=== PATIENT | male | born 1950 | race American Indian/Alaskan Native ===

== ENCOUNTER 2017-05-15 10:03 | Emergency (ER) | payer MEDICARE, OTHER ==
[2017-05-15] MEDS ORDERED: Lidocaine 2% Jelly 10 ML Urojet MUCMEM ONE (11:39)
--- NOTE | 2017-05-15 11:43 | EDM.PDOC ---
ED HPI GENERAL MEDICAL PROBLEM - General Chief Complaint: General Stated Complaint: RE-INSERT FEEDING TUBE Time Seen by Provider: 05/15/17 11:15 Source of Information: Reports: Patient, Family (spouse) History Limitations: Reports: No Limitations - History of Present Illness INITIAL COMMENTS - FREE TEXT/NARRATIVE: 66-year-old male [place] fellow presents to the ED as he accidentally pulled out his G-tube last evening. This occurred while taken off his T-shirt it somehow hooked on the G-tube and pulled it out. Receives Jevity on a daily basis for nutritional status due to severe dysphagia and history of aspiration pneumonitis. It's unclear at this time what the cause of his swallowing problems are. Patient has primary hypertension is on 2 medications for hypertension which he takes daily. G-tube was placed partially 2 years ago at [facility] in [facility] by [facility] surgeons. Patient has no recollection of what he and his G-tube. 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 Takes all his medications through his G-tube.) - Related Data Allergies Allergy/AdvReac Type Severity Reaction Status Date / Time No Known Allergies Allergy Verified 05/15/17 10:15 Home Meds: Home Meds Lisinopril 20 mg PO DAILY 05/28/14 [History] Nitroglycerin [Nitrostat] 1 tab PO ASDIRECTED PRN 05/28/14 [History] Folic Acid 1 mg PO DAILY 05/15/17 [History] Magnesium 400 mg PO DAILY 05/15/17 [History] Metoprolol Tartrate 50 mg PO BID 05/15/17 [History] Past Medical History HEENT History: Reports: Impaired Vision, Other (See Below) Other HEENT History: "cannot swallow- so patient has a G-tube" Cardiovascular History: Reports: Hypertension Gastrointestinal History: Reports: None Neurological History: Reports: Other (See Below) Other Neuro History: Nerve problems in legs- walks with crutches Psychiatric History: Reports: Addiction Dermatologic History: Reports: None - Past Surgical History GI Surgical History: Reports: Other (See Below) Other GI Surgeries/Procedures: G-tube Dermatological Surgical History: Reports: Other (See Below) Social & Family History - Family History Family Medical History: Noncontributory - Tobacco Use Smoking Status *Q: Former Smoker Years of Tobacco use: 45 Packs/Tins Daily: 0.5 Used Tobacco, but Quit: Yes Month Tobacco Last Used: 2015 - Alcohol Use Days Per Week of Alcohol Use: 7 Number of Drinks Per Day: 3 Total Drinks Per Week: 21 - Recreational Drug Use Recreational Drug Use: No - Living Situation & Occupation Living situation: Reports: with Spouse Occupation: Disabled ED ROS GENERAL - Review of Systems Review Of Systems: See Below Constitutional: Reports: No Symptoms HEENT: Reports: Other (History of trouble swallowing and choking easily.) Respiratory: Reports: Other (History of aspiration pneumonia.) Cardiovascular: Reports: Blood Pressure Problem, Dyspnea on Exertion (Chronic hypertension problem controlled with medication. Known mild COPD.). Denies: Chest Pain Endocrine: Reports: Fatigue GI/Abdominal: Reports: No Symptoms, Diarrhea, Other ( due to use of Jevity.) : Reports: Frequency, Other ( usually 3.) Musculoskeletal: Reports: Back Pain Skin: Reports: No Symptoms Neurological: Reports: Other (Difficulties swallowing. Exact etiology has not been clarified.) Psychiatric: Reports: No Symptoms Hematologic/Lymphatic: Reports: No Symptoms Immunologic: Reports: No Symptoms ED EXAM, GENERAL - Physical Exam Exam: See Below Exam Limited By: No Limitations General Appearance: Alert, WD/WN, No Apparent Distress, Thin, Other Eye Exam: Bilateral Eye: Normal Inspection Head: Atraumatic, Normocephalic Neck: Normal Inspection, Supple, Non-Tender, Full Range of Motion. No: Lymphadenopathy (L), Lymphadenopathy (R) Respiratory/Chest: No Respiratory Distress, Lungs Clear, Normal Breath Sounds, Chest Non-Tender Cardiovascular: Regular Rate, Rhythm, No Edema, No Gallop, No Murmur, No Rub Peripheral Pulses: 1+: Posterior Tibial (L), Posterior Tibial (R), Dorsalis Pedis (L), Dorsalis Pedis (R) GI/Abdominal: Other (Scaphoid abdomen. Gastrostomy ostomy left upper quadrant) Back Exam: Normal Inspection, Full Range of Motion Extremities: Normal Inspection, Normal Range of Motion, Non-Tender, No Pedal Edema Neurological: Alert, Oriented, CN II-XII Intact, Normal Cognition Psychiatric: Normal Affect, Normal Mood, Anxious (Mildly anxious. States it usually hurts when they put the G-tube in.) Skin Exam: Warm, Dry, Intact, Normal Color Course - Vital Signs Last Recorded V/S: Last Vital Signs Temp 36.4 C 05/15/17 10:11 Pulse 84 05/15/17 12:50 Resp 18 05/15/17 12:32 BP 167/105 H 05/15/17 12:50 Pulse Ox 99 05/15/17 12:32 - Orders/Labs/Meds Meds: Medications Discontinued Medications Generic Name Dose Route Start Last Admin Trade Name Freq PRN Reason Stop Dose Admin Lidocaine HCl 10 ml 05/15/17 11:39 05/15/17 11:44 Xylocaine 2% Jelly MUCMEM 05/15/17 11:40 10 ml ONETIME ONE Administration Lisinopril 20 mg 05/16/17 12:33 Prinivil GTUBE 05/16/17 12:34 ONETIME ONE Metoprolol Tartrate 50 mg 05/15/17 12:34 05/15/17 12:50 Lopressor GTUBE 05/15/17 12:35 50 mg ONETIME ONE Administration - Radiology Interpretation Free Text/Narrative:: 66-year-old male from [place] presents to the ED for reinsertion of G-tube. Patient actually pulled out his G-tube when he took off his T-shirt last night before bed. We have searched high and low for a similar G-tube but aren't able to find one. I will therefore place a 12 Burmese Moya catheter into the ostomy with a 5 mL balloon. We will follow down to mid to go to clinic and arrange for surgical consult to have his G-tube replaced in the next few days. - Re-Assessments/Exams Free Text/Narrative Re-Assessment/Exam: 05/15/17 12:15: We were unable to find a G-tube. Therefore a 12 Burmese Moya catheter was placed into the ostomy with no problems encountered. Of note I had placed Urojet 2% lidocaine in his ostomy wound prior to insertion of the G- tube. It easily irrigated 50 mils of tap water. He will now be given his metoprolol 50 mg by G-tube as well as lisinopril 20 mg by G-tube crushed as he missed his morning meds. Nurses are making arrangements for him to be seen by surgery at [facility] with a view to replacement of G-tube. Departure - Departure Time of Disposition: 12:39 Disposition: Home, Self-Care 01 Condition: Fair Clinical Impression: History of gastrostomy tube placement - Discharge Information Instructions: Gastrostomy Tube Replacement Referrals: PCP,Not In Area [Primary Care Provider] - Forms: ED Department Discharge Additional Instructions: Evaluation in the emergency room today in regards to G-tube that got accidentally pulled out from urostomy left upper quadrant last night when you' re taking Dr. Jordan. We were unable to locate a satisfactory size to G-tube in our department or its [facility]. Therefore a 12 Burmese Moya catheter was placed with a 5 mL balloon on it into the ostomy without any major problems. It easily irrigates tapwater. It is safe now to continue usual Jevity feedings and all medications crushed through G-tube. Will be required with a surgeon at [facility] in [place] through the [facility] system to have gastrostomy tube replaced. Please take along the gastrostomy tube that fell out last night so that they know what tube to look for. In the meantime the Moya catheter will suffice for nutrition until the G-tube is replaced
[2017-05-15 12:33] VITALS: BP 167/105
[2017-05-15] MEDS ORDERED: Metoprolol Tartrate 50 MG Tab GTUBE ONE (12:34)
[2017-05-16] MEDS ORDERED: Lisinopril 20 MG Tab GTUBE ONE (12:33)
== END 2017-05-15 12:57 | disposition home or self-care (01) ==
LOC: JD.ED 10:03
DX: Z46.89 Encounter for fitting and adjustment of other specified devices (principal); I10 Essential (primary) hypertension; Z79.899 Other long term (current) drug therapy; Z87.891 Personal history of nicotine dependence
CPT/HCPCS: 43760; 99283; A9270

== ENCOUNTER 2018-08-06 11:15 | Emergency (ER) | payer MEDICARE, OTHER ==
[2018-08-06 11:21] VITALS: BP 141/103
[2018-08-06] MEDS ORDERED: Sodium Chloride 0.9% 10 ML Syringe FLUSH PRN (11:52)
[2018-08-06] MEDS ORDERED: Iopamidol 755 Mg/ML 200 ML Bottle IV ONE (12:24)
[2018-08-06] MEDS ORDERED: Sodium Chloride 0.9% 10 ML Syringe FLUSH ONE (12:24)
--- NOTE | 2018-08-06 14:08 | EDM.PDOC ---
ED HPI GENERAL MEDICAL PROBLEM - General Chief Complaint: Gastrointestinal Problem Stated Complaint: CAME FROM SURGERY FOR EVAL Time Seen by Provider: 08/06/18 11:34 Source of Information: Reports: Patient, Provider History Limitations: Reports: No Limitations - History of Present Illness INITIAL COMMENTS - FREE TEXT/NARRATIVE: The patient returns from surgery. He was seen here last night for a FB in his esophagus. Dr Guillen came to see the patient and took him to surgery for EGD. There was no FB seen in his esophagus. After the procedure he woke up and had to be suctioned from his mouth a few times and he is having trouble swallowing his secretions. He also has a horse voice. He is also coughing up some phlegm. He says he feels full in his chest. He has no shortness of breath. He has no abdominal pain, nausea or vomiting. He has a PEG tube from a prior stroke with trouble swallowing. He had no numbness or weakness. He says this can happen sometimes. Dr Guillen wanted him evaluated again to rule out a stroke. He has no fever or chills. Onset: Gradual Duration: Minutes: Severity: Moderate Improves with: Reports: None Worsens with: Reports: None Associated Symptoms: Reports: Chest Pain (Fullnees in his chest), Cough. Denies : Fever/Chills, Headaches, Nausea/Vomiting, Shortness of Breath - Related Data Allergies Allergy/AdvReac Type Severity Reaction Status Date / Time No Known Allergies Allergy Verified 08/06/18 11:21 Home Meds: Home Meds Lisinopril 40 mg PO DAILY 05/28/14 [History] Folic Acid 1 mg PO DAILY 05/15/17 [History] Metoprolol Tartrate 50 mg PO DAILY 05/15/17 [History] amLODIPine [Norvasc] 5 mg PO DAILY 11/21/17 [History] oxyCODONE HCl/Acetaminophen [Percocet 5-325 mg Tablet] 1 - 2 each PO Q4H PRN # 20 tablet 11/21/17 [Rx] Past Medical History HEENT History: Reports: Impaired Vision, Other (See Below) Other HEENT History: wears corrective lenses Cardiovascular History: Reports: Angina, CAD, Hypertension, [place] Gastrointestinal History: Reports: None Neurological History: Reports: CVA, Other (See Below) Other Neuro History: Nerve problems in legs- walks with crutches Psychiatric History: Reports: Addiction Dermatologic History: Reports: None - Past Surgical History GI Surgical History: Reports: Other (See Below) Other GI Surgeries/Procedures: G-tube Dermatological Surgical History: Reports: Other (See Below) Social & Family History - Family History Family Medical History: Noncontributory - Tobacco Use Smoking Status *Q: Current Status Unknown - Caffeine Use Caffeine Use: Reports: Coffee - Living Situation & Occupation Living situation: Reports: with Spouse Occupation: Disabled ED ROS GENERAL - Review of Systems Review Of Systems: See Below Constitutional: Reports: No Symptoms HEENT: Reports: No Symptoms Respiratory: Reports: Cough Cardiovascular: Reports: Chest Pain (Fullness) Endocrine: Reports: No Symptoms GI/Abdominal: Reports: No Symptoms ED EXAM, GI/ABD - Physical Exam Exam: See Below Exam Limited By: No Limitations General Appearance: Alert, No Apparent Distress Ears: Normal External Exam Nose: Normal Inspection Throat/Mouth: Normal Inspection Head: Atraumatic, Normocephalic Neck: Normal Inspection Respiratory/Chest: No Respiratory Distress, Lungs Clear, Normal Breath Sounds Cardiovascular: Regular Rate, Rhythm, No Edema, No Murmur GI/Abdominal Exam: Soft, Non-Tender, No Organomegaly, No Mass, Other (PEG tube in place) Back Exam: Normal Inspection Extremities: Normal Inspection Neurological: Alert, Oriented, No Motor/Sensory Deficits Course - Vital Signs Last Recorded V/S: Last Vital Signs Temp 99.0 F 08/06/18 11:18 Pulse 95 08/06/18 11:18 Resp 16 08/06/18 11:18 BP 141/103 H 08/06/18 11:18 Pulse Ox 9 L 08/06/18 11:18 - Orders/Labs/Meds Orders: Active Orders 24 hr Category Date Time Status Cardiac Monitoring [RC] . DIRECTED Care 08/06/18 11:52 Active Peripheral IV Care [RC] . DIRECTED Care 08/06/18 11:53 Active Chest w Cont [CT] Stat Exams 08/06/18 11:53 Taken Head wo Cont [CT] Stat Exams 08/06/18 11:54 Taken Sodium Chloride 0.9% [Saline Flush] Med 08/06/18 11:52 Active 10 ml FLUSH ASDIRECTED PRN Peripheral IV Insertion Adult [OM.PC] Stat Oth 08/06/18 11:52 Ordered Medication Orders Sodium Chloride (Saline Flush) 10 ml FLUSH ASDIRECTED PRN PRN Reason: Keep Vein Open Last Admin: 08/06/18 12:37 Dose: 10 ml Labs: Laboratory Tests 08/06/18 08/06/18 Range/Units 13:37 13:37 WBC 9.09 H (4.23-9.07) K/mm3 RBC 4.11 L (4.63-6.08) M/mm3 Hgb 13.7 (13.7-17.5) gm/L Hct 41.2 (40.1-51.0) % MCV 100.2 H (79.0-92.2) fl MCH 33.3 H (25.7-32.2) pg MCHC 33.3 (32.2-35.5) g/dl RDW Std Deviation 46.1 H (35.1-43.9) fL Plt Count 189 (163-337) K/mm3 MPV 11.2 (9.4-12.3) fl Neut % (Auto) 78.8 H (34.0-67.9) % Lymph % (Auto) 10.8 L (21.8-53.1) % [place] % (Auto) 9.8 (5.3-12.2) % Eos % (Auto) 0.2 L (0.8-7.0) Baso % (Auto) 0.2 (0.1-1.2) % Neut # (Auto) 7.16 H (1.78-5.38) K/mm3 Lymph # (Auto) 0.98 L (1.32-3.57) K/mm3 [place] # (Auto) 0.89 H (0.30-0.82) K/mm3 Eos # (Auto) 0.02 L (0.04-0.54) K/mm3 Baso # (Auto) 0.02 (0.01-0.08) K/mm3 Sodium 137 (136-145) mEq/L Potassium 3.5 (3.5-5.1) mEq/L Chloride 103 (98-107) mEq/L Carbon Dioxide 25 (21-32) mEq/L Anion Gap 12.5 (5-15) BUN 8 (7-18) mg/dL Creatinine 0.7 (0.7-1.3) mg/dL Est Cr Clr Drug Dosing 93.96 mL/min Estimated GFR (MDRD) > 60 (>60) mL/min BUN/Creatinine Ratio 11.4 L (14-18) Glucose 97 (80-115) mg/dL Calcium 8.4 L (8.5-10.1) mg/dL Total Bilirubin 1.0 (0.2-1.0) mg/dL AST 67 H (15-37) U/L ALT 58 (16-63) U/L Alkaline Phosphatase 75 (46-116) U/L Troponin I < 0.017 (0.00-0.056) ng/mL C-Reactive Protein 7.1 H* (<1.0) mg/dL Total Protein 6.6 (6.4-8.2) g/dl Albumin 3.0 L (3.4-5.0) g/dl Globulin 3.6 gm/dL Albumin/Globulin Ratio 0.8 L (1-2) Meds: Medications Generic Name Dose Route Start Last Admin Trade Name Freq PRN Reason Stop Dose Admin Sodium Chloride 10 ml 08/06/18 11:52 08/06/18 12:37 Saline Flush FLUSH 10 ml ASDIRECTED PRN Administration Keep Vein Open Discontinued Medications Generic Name Dose Route Start Last Admin Trade Name Freq PRN Reason Stop Dose Admin Iopamidol 80 ml 08/06/18 12:24 08/06/18 12:37 Isovue-370 (76%) IV 08/06/18 12:25 100 ml ONETIME ONE Administration Sodium Chloride 10 ml 08/06/18 12:24 08/06/18 13:05 Saline Flush FLUSH 08/06/18 12:25 10 ml ONETIME ONE Administration - Re-Assessments/Exams Free Text/Narrative Re-Assessment/Exam: 08/06/18 14:12 I ordered an IV saline lock, CT of his head and chest and labs. 08/06/18 14:13 His WBC was slightly elevated at 9.09. The CT of his head shows no CT evidence for acute intracranial abnormality. The CT of his chest shows no evidence for acute pulmonary disease. 08/06/18 14:14 His CMP looks good. His CRP is elevated at 7.1. His troponin is negative. I will discharge him home. 08/06/18 14:18 He is doing better. Departure - Departure Time of Disposition: 14:20 Disposition: Home, Self-Care 01 Condition: Good Clinical Impression: History of gastrostomy tube placement, Congestion of throat Impacted esophageal foreign body Qualifiers: Encounter type: initial encounter Qualified Code(s): T18.108A - Unspecified foreign body in esophagus causing other injury, initial encounter - Discharge Information *PRESCRIPTION DRUG MONITORING PROGRAM REVIEWED*: Not Applicable *COPY OF PRESCRIPTION DRUG MONITORING REPORT IN PATIENT ABDULKADIR: Not Applicable Referrals: PCP,None [Primary Care Provider] - Forms: ED Department Discharge Additional Instructions: Take your medication as prescribed. Follow up with your doctor in 1 week. Please return if you are worse. - My Orders Last 24 Hours: My Active Orders 08/06/18 11:52 Cardiac Monitoring [RC] . DIRECTED Sodium Chloride 0.9% [Saline Flush] 10 ml FLUSH ASDIRECTED PRN Peripheral IV Insertion Adult [OM.PC] Stat 08/06/18 11:53 Peripheral IV Care [RC] . DIRECTED Chest w Cont [CT] Stat 08/06/18 11:54 Head wo Cont [CT] Stat - Assessment/Plan Last 24 Hours: My Active Orders 08/06/18 11:52 Cardiac Monitoring [RC] . DIRECTED Sodium Chloride 0.9% [Saline Flush] 10 ml FLUSH ASDIRECTED PRN Peripheral IV Insertion Adult [OM.PC] Stat 08/06/18 11:53 Peripheral IV Care [RC] . DIRECTED Chest w Cont [CT] Stat 08/06/18 11:54 Head wo Cont [CT] Stat
--- NOTE | 2018-08-08 10:56 | CT ---
CT chest Technique: Multiple axial sections through the chest were obtained. Intravenous contrast was utilized. Comparison: Prior chest x-ray performed earlier on the same day (2:13 AM), no previous chest x-ray is available. Findings: Mediastinum and hilar region show no adenopathy or mass. Aorta shows atherosclerotic calcification without aneurysm. Mild coronary artery calcification is seen. No pericardial thickening is seen. Fatty infiltration is noted within the liver. Gastrostomy tube is seen. No axillary adenopathy is seen. Very minimal bibasilar atelectasis is seen. Slight extrapleural fat is seen within both posterior lung bases which is incidental. Bone window settings show no slight scoliosis and minimal degenerative change within the spine. No acute rib fracture is appreciated. Incidental degenerative change is seen within both shoulders. Impression: 1. Incidental findings as noted above. Nothing acute is appreciated on CT study of the chest. Diagnostic code #2 I agree with preliminary report issued by [facility] ([facility] report finalized on 08/06/18, 2:02 PM Central Time.
--- NOTE | 2018-08-08 10:56 | CT ---
Head CT Technique: Multiple axial sections through the brain were obtained. Intravenous contrast was not utilized. Comparison: Prior head CT study of 09/04/15. Findings: Ventricles along with basal cisterns and sulci over the convexities are moderately prominent. Diminished density noted within the subcortical and periventricular white matter compatible with small vessel ischemic demyelination change. No other abnormal parenchymal densities are seen. No evidence of intracranial hemorrhage. No midline shift or mass effect is seen. Atherosclerotic calcification is seen within the vertebral vessels. Bone window settings were reviewed which show an old fracture within the medial right orbit. No acute calvarial abnormality is seen. Impression: 1. Findings as noted above. Nothing acute is appreciated. Diagnostic code #2 I agree with preliminary report issued by [facility] ([facility] report finalized on 08/06/18, 1:58 PM Central Time.
== END 2018-08-06 14:35 | disposition home or self-care (01) ==
LOC: JD.ED 11:15
DX: T18.108A Unspecified foreign body in esophagus causing other injury, initial encounter (principal); I10 Essential (primary) hypertension; I25.2 Old myocardial infarction; Z79.899 Other long term (current) drug therapy; X58.XXXA Exposure to other specified factors, initial encounter
CPT/HCPCS: 36415; 70450; 71260; 80053; 84484; 85025; 86140; 99284; Q9967

== ENCOUNTER → 2018-08-06 | Day surgery (SDC) | payer MEDICARE, OTHER ==
[~2018-08-06] MED LIST: Glucagon,Human Recombinant 1 MG Vial IVPUSH ONE; HYDROmorphone 1 MG/ML Syringe IVPUSH ONE; LORazepam 2 MG/ML SDV IVPUSH ONE; Lidocaine 1% 4 ML ONE; Metoclopramide 10 MG/2 ML SDV IVPUSH ONE; Metoprolol Tartrate 5 MG/5 ML SDV ONE; Midazolam 1 MG/ML 2 ML SDV ONE; Propofol 200 MG/20 ML SDV ONE; Sodium Chloride 0.9% 1,000 ML IV SCH; Succinylcholine/Normal Saline 100 MG/5 ML Syringe ONE; fentaNYL 100 MCG/2 ML SDV ONE
--- NOTE | 2018-08-06 01:49 | EDM.PDOC ---
ED HPI GENERAL MEDICAL PROBLEM - General Chief Complaint: Gastrointestinal Problem Stated Complaint: [facility] Time Seen by Provider: 08/06/18 01:42 Source of Information: Reports: Patient History Limitations: Reports: No Limitations - History of Present Illness INITIAL COMMENTS - FREE TEXT/NARRATIVE: 67-year-old male from [place] presents to the ED per their ambulance. He states he's been trying to wean himself off his G-tube which she's been using for feeding for about for 5 years after having a stroke. Last evening he tried to take some topical chips and eat them. He feels that they got stuck at the lower portion of his esophagus and since then he's been unable to swallow or drink anything and is regurgitating up his saliva. He has lower retrosternal chest pain discomfort as well. No blood is coming up. She usually takes all of his medications crushed through his G-tube. Paramedics started an IV and gave him some Zofran 4 mg IV en route to [place]. Onset: Sudden Onset Date: 08/05/18 Onset Time: 19:30 Duration: Hour(s): Location: Reports: Chest (Lower retrosternal chest pressure discomfort with recurrent regurgitation compatible with foreign body obstruction of the distal esophagus) Quality: Reports: Pressure, Other (Intermittent colicky type pain) Severity: Moderate Improves with: Reports: None Worsens with: Reports: Other Context: Reports: Other (Is trying to wean himself off his G-tube and took oral feedings that did not go down his esophagus last evening.). Denies: Activity, Exercise (Worse when he tries to swallow even his saliva is coming back up.), Lifting, Sick Contact, Trauma Associated Symptoms: Reports: Cough. 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 (see below) (Machine Spring Former came Zofran 4 mg IV.) Chest Pain Score (Numeric/FACES): 5 - Related Data Allergies Allergy/AdvReac Type Severity Reaction Status Date / Time No Known Allergies Allergy Verified 08/06/18 11:21 Home Meds: Home Meds Lisinopril 40 mg PO DAILY 05/28/14 [History] Folic Acid 1 mg PO DAILY 05/15/17 [History] Metoprolol Tartrate 50 mg PO DAILY 05/15/17 [History] amLODIPine [Norvasc] 5 mg PO DAILY 11/21/17 [History] oxyCODONE HCl/Acetaminophen [Percocet 5-325 mg Tablet] 1 - 2 each PO Q4H PRN # 20 tablet 11/21/17 [Rx] Past Medical History HEENT History: Reports: Impaired Vision, Other (See Below) Other HEENT History: wears corrective lenses Cardiovascular History: Reports: Angina, CAD, Hypertension, [place] Gastrointestinal History: Reports: None Neurological History: Reports: CVA (Ana Cristina a cerebrovascular accident about 4- 5 years ago with associated dysphagia and esophageal motility problems. He thus required feeding through a G-tube and is been doing this for the last 4 years. He was recently instructed to try to take fluids and some food orally and he's been trying to do this for the last 2-3 weeks.), Other (See Below) Other Neuro History: Nerve problems in legs- walks with crutches Psychiatric History: Reports: Addiction Dermatologic History: Reports: None - Past Surgical History GI Surgical History: Reports: Other (See Below) Other GI Surgeries/Procedures: G-tube Dermatological Surgical History: Reports: Other (See Below) Social & Family History - Family History Family Medical History: Noncontributory - Tobacco Use Smoking Status *Q: Former Smoker Used Tobacco, but Quit: Yes Month/Year Tobacco Last Used: 3-4 years ago - Caffeine Use Caffeine Use: Reports: Coffee - Living Situation & Occupation Living situation: Reports: with Spouse Occupation: Disabled ED ROS GENERAL - Review of Systems Review Of Systems: See Below Constitutional: Reports: Decreased Appetite. Denies: Fever, Chills, Malaise, Weakness, Fatigue, Weight Loss HEENT: Reports: Glasses Respiratory: Reports: Shortness of Breath, Cough (Looking cough with regurgitation of his saliva). Denies: Wheezing, Pleuritic Chest Pain Cardiovascular: Reports: Chest Pain (Extra sternal chest pain rated the lower portion of the sternum.), Blood Pressure Problem (Is on 2 different), Dyspnea on Exertion. Denies: Claudication ( blood pressure medications), Edema, Lightheadedness, Orthopnea Endocrine: Reports: Fatigue GI/Abdominal: Reports: Difficulty Swallowing, Other (Primarily receives most of his nutrition through G-tube left upper quadrant of the abdomen.). Denies: Abdominal Pain, Anorexia, Black Stool, Bloody Stool, Constipation, Diarrhea, Decreased Appetite, Distension, Flatus, Hematemesis, Hematochezia : Reports: Frequency, Other (Nocturia usually 2 or 3) Musculoskeletal: Reports: Other (Walks with aid of a walker due to weakness in his lower extremities) Skin: Reports: No Symptoms Neurological: Reports: Difficulty Walking, Gait Disturbance. Denies: Confusion , Dizziness, Change in Speech Psychiatric: Reports: No Symptoms Hematologic/Lymphatic: Reports: No Symptoms Immunologic: Reports: No Symptoms ED EXAM, GI/ABD - Physical Exam Exam: See Below Exam Limited By: No Limitations General Appearance: Alert, WD/WN, Moderate Distress (Continues to bring up clear saliva which is slightly thickened but clear in color. No blood.), Other ( His vital signs show his temperature is 37.5. His pulse was 120 and a noticed on the monitor at times it's sinus up to 130/m. Spiked rate is 17 with sats of 96% on room air) Eyes: Bilateral: Normal Appearance Throat/Mouth: Normal Inspection, Normal Lips, Normal Oropharynx Head: Atraumatic, Normocephalic Neck: Normal Inspection, Supple, Non-Tender, Full Range of Motion. No: Lymphadenopathy (L), Lymphadenopathy (R) Respiratory/Chest: No Respiratory Distress, Lungs Clear, Normal Breath Sounds, No Accessory Muscle Use Cardiovascular: Regular Rate, Rhythm, No Edema (Cardiac 125/m sinus on the monitor.), No Gallop, No Murmur, No Rub, Tachycardia. No: Normal Peripheral Pulses GI/Abdominal Exam: Normal Bowel Sounds, Soft, Non-Tender, No Organomegaly, No Abnormal Bruit, No Mass, Pelvis Stable, Other (G-tube present left upper quadrant of the abdomen . Mild erythema at the base of the stoma) Back Exam: Normal Inspection, Full Range of Motion. No: CVA Tenderness (L), CVA Tenderness (R) Extremities: Other (Has some atrophy of his lower extremities.) Neurological: Alert, Oriented, CN II-XII Intact, Normal Cognition, Other (Walks slowly with aid of a walker.). No: Normal Gait Psychiatric: Anxious Skin Exam: Warm, Dry, Intact, Normal Color, No Rash EKG INTERPRETATION EKG Date: 08/06/18 Time: 01:52 Rhythm: Other (Sinus tachycardia 1 21/m) Rate (Beats/Min): 121 Darden: LAD-Left Darden Deviation (-79 with left anterior fascicular block pattern) P-Wave: Present QRS: Other (Q waves V1 to V3 compatible with old anteroseptal myocardial infarction. There is a left ventricular hypertrophy pattern. There is a near Q- wave in lead 2 and aVF and a Q-wave in lead 3 suggesting an old inferior wall myocardial infarction.) ST-T: Other (T-wave inversion aVL nonspecific finding) QT: Prolonged (QTC is mildly prolonged.) EKG Interpretation Comments: Abnormal ECG Course - Vital Signs Last Recorded V/S: Last Vital Signs Temp 37.2 C 08/06/18 10:36 Pulse 95 08/06/18 10:36 Resp 16 08/06/18 10:36 BP 138/96 H 08/06/18 10:36 Pulse Ox 95 08/06/18 10:36 - Orders/Labs/Meds Orders: Medication Orders Sodium Chloride (Normal Saline) 1,000 mls @ 100 mls/hr IV ASDIRECTED COUNT INCLUDES THE [facility] Last Admin: 08/06/18 02:04 Dose: 100 mls/hr Labs: Laboratory Tests 08/06/18 08/06/18 08/06/18 Range/Units 02:04 02:04 02:04 WBC 10.63 H (4.23-9.07) K/mm3 RBC 4.41 L (4.63-6.08) M/mm3 Hgb 14.6 (13.7-17.5) gm/L Hct 43.4 (40.1-51.0) % MCV 98.4 H (79.0-92.2) fl MCH 33.1 H (25.7-32.2) pg MCHC 33.6 (32.2-35.5) g/dl RDW Std Deviation 44.7 H (35.1-43.9) fL Plt Count 202 (163-337) K/mm3 MPV 11.1 (9.4-12.3) fl Neutrophils % (Manual) 86 H (40-60) % Band Neutrophils % 2 (0-10) % Lymphocytes % (Manual) 5 L (20-40) % Atypical Lymphs % 0 % Monocytes % (Manual) 7 (2-10) % Eosinophils % (Manual) 0 L (0.8-7.0) % Basophils % (Manual) 0 L (0.2-1.2) Platelet Estimate Adequate Plt Morphology Comment Normal Macrocytosis 1+ slight RBC Morph Comment Not Reportable Sodium 135 L (136-145) mEq/L Potassium 3.5 (3.5-5.1) mEq/L Chloride 100 (98-107) mEq/L Carbon Dioxide 20 L (21-32) mEq/L Anion Gap 18.5 H (5-15) BUN 8 (7-18) mg/dL Creatinine 0.8 (0.7-1.3) mg/dL Est Cr Clr Drug Dosing 85.50 mL/min Estimated GFR (MDRD) > 60 (>60) mL/min BUN/Creatinine Ratio 10.0 L (14-18) Glucose 104 (80-115) mg/dL Calcium 8.9 (8.5-10.1) mg/dL Magnesium 2.0 (1.8-2.4) mg/dl Total Bilirubin 0.7 (0.2-1.0) mg/dL AST 117 H (15-37) U/L ALT 68 H (16-63) U/L Alkaline Phosphatase 90 (46-116) U/L NT-Pro-B Natriuret Pep 316 H (0-125) pg/mL Total Protein 7.3 (6.4-8.2) g/dl Albumin 3.4 (3.4-5.0) g/dl Globulin 3.9 gm/dL Albumin/Globulin Ratio 0.9 L (1-2) Meds: Medications Generic Name Dose Route Start Last Admin Trade Name Freq PRN Reason Stop Dose Admin Sodium Chloride 1,000 mls @ 100 mls/hr 08/06/18 02:00 08/06/18 02:04 Normal Saline IV 100 mls/hr ASDIRECTED MARY Administration Discontinued Medications Generic Name Dose Route Start Last Admin Trade Name Freq PRN Reason Stop Dose Admin Fentanyl Confirm 08/06/18 08:51 Sublimaze Administered 08/06/18 08:52 Dose 100 mcg .ROUTE .STK-MED ONE Glucagon 1 mg 08/06/18 01:51 08/06/18 02:28 Glucagen IVPUSH 08/06/18 01:52 1 mg ONETIME ONE Administration Hydromorphone HCl 0.5 mg 08/06/18 01:50 08/06/18 02:07 Dilaudid IVPUSH 08/06/18 01:51 0.5 mg ONETIME ONE Administration Hydromorphone HCl 0.5 mg 08/06/18 02:48 08/06/18 02:56 Dilaudid IVPUSH 08/06/18 02:49 0.5 mg ONETIME ONE Administration Lidocaine HCl Confirm 08/06/18 08:51 Xylocaine-Mpf 1% Administered 08/06/18 08:52 Dose 4 mls @ as directed .ROUTE .STK-MED ONE Lorazepam 0.5 mg 08/06/18 02:49 08/06/18 02:57 Ativan IVPUSH 08/06/18 02:50 0.5 mg ONETIME ONE Administration Metoclopramide HCl 10 mg 08/06/18 01:50 08/06/18 02:07 Reglan IVPUSH 08/06/18 01:51 10 mg ONETIME ONE Administration Metoclopramide HCl 10 mg 08/06/18 02:04 08/06/18 02:07 Reglan IVPUSH 08/06/18 02:05 Not Given ONETIME ONE Metoprolol Tartrate Confirm 08/06/18 08:57 Lopressor Administered 08/06/18 08:58 Dose 5 mg .ROUTE .STK-MED ONE Midazolam HCl Confirm 08/06/18 08:51 Versed 1 Mg/Ml Administered 08/06/18 08:52 Dose 2 mg .ROUTE .STK-MED ONE Propofol Confirm 08/06/18 08:50 Diprivan 20 Ml Administered 08/06/18 08:51 Dose 200 mg .ROUTE .STK-MED ONE Succinylcholine Chloride Confirm 08/06/18 08:51 Succinylcholine In Ns Pf Administered 08/06/18 08:52 Dose 100 mg .ROUTE .STK-MED ONE - Radiology Interpretation Free Text/Narrative:: 67-year-old male presents to the ED with suspect foreign body impaction in lower aspect of his esophagus. had is had a previous CVA and trouble with esophageal motility for the last 5 years. He is primarily fed with a G-tube left upper quadrant of the abdomen. He states he was trying to wean himself off his G-tube as instructed to by his neurologist. He can usually get most fluids down but does travel quite easily. Last night he tried to eat a taco and it did not go down. He states since about 1930 hrs. last evening he's been bringing up all of his saliva and regurgitating. He has pain in his distal lower retrosternal area. Patient presents with a sinus tachycardia at 1 21/m and is obviously quite anxious and in some degree of discomfort. His ECG is suspicious for old anteroseptal myocardial infarction and old inferior wall myocardial infarction. ECG suggests significant left ventricle hypertrophy pattern. He has a chronic hypertension problem. When chest x-ray will be done to make sure there 's been no aspiration. Labs will be performed as he may well end up going to the or for EGD. Plan normal saline at 100 mils per hour. Given Dilaudid 0.5 mg IV with Reglan 10 mg IV and in 20 minutes was given glucagon 1 mg IV and see if we can get the food bolus to go through. I will give him a small sip of serum best to try and facilitate passage of food bolus after the glucagon is in. Failing this we will have to contact the surgeon to perform EGD. - Re-Assessments/Exams Free Text/Narrative Re-Assessment/Exam: 08/06/18 02:49 5 minutes after the glucagon was given he was tried on some Sruthi mist soda pop. He still is not able to swallow it however. He continues to regurgitate saliva. He seems to wince when he swallows suggesting that he may have something in the upper esophagus as well. I'm going to give him repeat Dilaudid 0.5 mg IV and Ativan 0.5 mg IV in the hopes of providing some degree of pain relief and sedation. Hopefully he will be able to sleep for a couple of hours and then I will reevaluate him. Of couple hours and then reevaluatehim. It is likely that he is going to require an EGD. Do not see that it is any emergent need I will call the surgeon around 0600 hrs. this morning. 08/06/18 03:14 chest x-ray done portably reveals some chronic inflammation or scar tissue right lower lobe which was present on x-ray done in August 2015. Cardiac silhouette is normal in size. Upper lung starr are clear with no evidence of aspiration pneumonitis. Labs are back. White count is 10.63 with 86 % neutrophils and 2% band cells. Hemoglobin is 14.6 with hematocrit of 43.4. MCV is mildly elevated at 98.4. Sodium 135 with a potassium of 3.5. Chloride 100 with bicarbonate 20. Anion gap is elevated at 18.5. BUN is 8 with creatinine of 0.8. Glucose 104 the calcium of 8.9. Magnesium is 2.0 with a bilirubin of 0.7. AST is 117 with ALT of 68. Alk phosphatase is normal at 90. BNP is minimally elevated at 316. Total protein is 7.3. Patient is therefore mildly volume depleted with an elevated anion gap. Continue IV fluids normal saline 100 mils per hour overnight. I will plan a calling the surgeon at about 0600 hrs. 08/06/18 03:55 patient falls asleep transiently. But he has occurred suction in his hand that he can suction himself with if he needs to for regurgitation of saliva. 08/06/18 06:22 discussed the case with Dr.Charles Guillen. --[facility] surgeon and he will attend Mr Bhardwaj in the ED with proposal for EGD later this am. Departure - Departure Time of Disposition: 09:20 Disposition: DC/Tfer to Critical Access 66 Condition: Fair Clinical Impression: Impacted esophageal foreign body Qualifiers: Encounter type: initial encounter Qualified Code(s): T18.108A - Unspecified foreign body in esophagus causing other injury, initial encounter - Discharge Information *PRESCRIPTION DRUG MONITORING PROGRAM REVIEWED*: Not Applicable *COPY OF PRESCRIPTION DRUG MONITORING REPORT IN PATIENT ABDULKADIR: Not Applicable
--- NOTE | 2018-08-06 06:21 | CR ---
Chest: Frontal view of the chest. Comparison: Prior chest x-ray of 09/04/15. Heart size is normal. Tortuous thoracic aorta is seen. Lungs are clear with no acute parenchymal change. Scoliosis is noted within the spine. Impression: 1. Nothing acute is seen on frontal chest x-ray. Diagnostic code #2
--- NOTE | 2018-08-06 08:11 | PCM.PREANE ---
Preanesthetic Assessment - Anesthesia/Transfusion/Family Hx Anesthesia History: Prior Anesthesia Without Reaction Family History of Anesthesia Reaction: No Transfusion History: No Prior Transfusion(s) - Review of Systems General: Weakness, Malaise Pulmonary: Shortness of Breath, Cough, Sputum Cardiovascular: Dyspnea on Exertion, Lightheadedness Gastrointestinal: Abdominal Pain, Difficulty Swallowing, Nausea, Vomiting Neurological: Gait Disturbance (walks with walker) Other: Reports: Easy Bruising - Physical Assessment NPO Status Date: 08/05/18 NPO Status Time: 19:30 Pulse: 113 O2 Sat by Pulse Oximetry: 96 Respiratory Rate: 17 Blood Pressure: 149/98 Temperature: 3.1 C Vital Signs: Last Vital Signs Temp 37.5 C 08/06/18 01:26 Pulse 120 H 08/06/18 01:26 Resp 17 08/06/18 01:26 BP 138/110 H 08/06/18 01:26 Pulse Ox 96 08/06/18 01:26 Height: 1.73 m Weight: 70.307 kg ASA Class: 3E Mental Status: Alert & Oriented x3 Airway Class: Mallampati = 2 Dentition: Reports: Broken Tooth/Teeth, Caries Thyro-Mental Finger Breadths: 2 Mouth Opening Finger Breadths: 2 ROM/Head Extension: Full Lungs: Clear to Auscultation, Normal Respiratory Effort - Lab Values: Laboratory Last Values WBC 10.63 K/mm3 (4.23-9.07) H 08/06/18 02:04 RBC 4.41 M/mm3 (4.63-6.08) L 08/06/18 02:04 Hgb 14.6 gm/L (13.7-17.5) 08/06/18 02:04 Hct 43.4 % (40.1-51.0) 08/06/18 02:04 MCV 98.4 fl (79.0-92.2) H 08/06/18 02:04 MCH 33.1 pg (25.7-32.2) H 08/06/18 02:04 MCHC 33.6 g/dl (32.2-35.5) 08/06/18 02:04 RDW Std Deviation 44.7 fL (35.1-43.9) H 08/06/18 02:04 Plt Count 202 K/mm3 (163-337) 08/06/18 02:04 MPV 11.1 fl (9.4-12.3) 08/06/18 02:04 Neutrophils % (Manual) 86 % (40-60) H 08/06/18 02:04 Band Neutrophils % 2 % (0-10) 08/06/18 02:04 Lymphocytes % (Manual) 5 % (20-40) L 08/06/18 02:04 Atypical Lymphs % 0 % 08/06/18 02:04 Monocytes % (Manual) 7 % (2-10) 08/06/18 02:04 Eosinophils % (Manual) 0 % (0.8-7.0) L 08/06/18 02:04 Basophils % (Manual) 0 (0.2-1.2) L 08/06/18 02:04 Platelet Estimate Adequate 08/06/18 02:04 Plt Morphology Comment Normal 08/06/18 02:04 Macrocytosis 1+ slight 08/06/18 02:04 RBC Morph Comment Not Reportable 08/06/18 02:04 Sodium 135 mEq/L (136-145) L 08/06/18 02:04 Potassium 3.5 mEq/L (3.5-5.1) 08/06/18 02:04 Chloride 100 mEq/L (98-107) 08/06/18 02:04 Carbon Dioxide 20 mEq/L (21-32) L 08/06/18 02:04 Anion Gap 18.5 (5-15) H 08/06/18 02:04 BUN 8 mg/dL (7-18) 08/06/18 02:04 Creatinine 0.8 mg/dL (0.7-1.3) 08/06/18 02:04 Est Cr Clr Drug Dosing 85.50 mL/min 08/06/18 02:04 Estimated GFR (MDRD) > 60 mL/min (>60) 08/06/18 02:04 BUN/Creatinine Ratio 10.0 (14-18) L 08/06/18 02:04 Glucose 104 mg/dL (80-115) 08/06/18 02:04 Calcium 8.9 mg/dL (8.5-10.1) 08/06/18 02:04 Magnesium 2.0 mg/dl (1.8-2.4) 08/06/18 02:04 Total Bilirubin 0.7 mg/dL (0.2-1.0) 08/06/18 02:04 AST 117 U/L (15-37) H 08/06/18 02:04 ALT 68 U/L (16-63) H 08/06/18 02:04 Alkaline Phosphatase 90 U/L (46-116) 08/06/18 02:04 NT-Pro-B Natriuret Pep 316 pg/mL (0-125) H 08/06/18 02:04 Total Protein 7.3 g/dl (6.4-8.2) 08/06/18 02:04 Albumin 3.4 g/dl (3.4-5.0) 08/06/18 02:04 Globulin 3.9 gm/dL 08/06/18 02:04 Albumin/Globulin Ratio 0.9 (1-2) L 08/06/18 02:04 - Imaging/EKG Impressions: EKG on chart ST with PACs - Allergies Allergies/Adverse Reactions: Allergies Allergy/AdvReac Type Severity Reaction Status Date / Time No Known Allergies Allergy Verified 08/06/18 02:35 - Blood Blood Available: No Product(s) Available: None - Anesthesia Plan Pre-Op Medication Ordered: Beta Mark Beta Mark: Metoprolol Med Last Dose Date: 08/06/18 Med Last Dose Time: 08:57 - Acknowledgements Anesthesia Type Planned: General Anesthesia Pt an Appropriate Candidate for the Planned Anesthesia: Yes Alternatives and Risks of Anesthesia Discussed w Pt/Guardian: Yes Pt/Guardian Understands and Agrees with Anesthesia Plan: Yes PreAnesthesia Questionnaire HEENT History: Reports: Impaired Vision, Other (See Below) Other HEENT History: wears corrective lenses Cardiovascular History: Reports: Angina, CAD, Hypertension, [place] Gastrointestinal History: Reports: None Neurological History: Reports: CVA (Ana Cristina a cerebrovascular accident about 4- 5 years ago with associated dysphagia and esophageal motility problems. He thus required feeding through a G-tube and is been doing this for the last 4 years. He was recently instructed to try to take fluids and some food orally and he's been trying to do this for the last 2-3 weeks.), Other (See Below) Other Neuro History: Nerve problems in legs- walks with crutches Psychiatric History: Reports: Addiction Dermatologic History: Reports: None - Past Surgical History GI Surgical History: Reports: Other (See Below) Other GI Surgeries/Procedures: G-tube Dermatological Surgical History: Reports: Other (See Below) - SUBSTANCE USE Smoking Status *Q: Former Smoker Tobacco Use Within Last Twelve Months: No - HOME MEDS Home Medications: Home Meds Lisinopril 40 mg PO DAILY 05/28/14 [History] Folic Acid 1 mg PO DAILY 05/15/17 [History] Metoprolol Tartrate 50 mg PO DAILY 05/15/17 [History] amLODIPine [Norvasc] 5 mg PO DAILY 11/21/17 [History] oxyCODONE HCl/Acetaminophen [Percocet 5-325 mg Tablet] 1 - 2 each PO Q4H PRN # 20 tablet 11/21/17 [Rx] - CURRENT (IN HOUSE) MEDS Current Meds: Current Medications Sodium Chloride (Normal Saline) 1,000 mls @ 100 mls/hr IV ASDIRECTED MARY Last Admin: 08/06/18 02:04 Dose: 100 mls/hr Discontinued Medications Glucagon (Glucagen) 1 mg IVPUSH ONETIME ONE Stop: 08/06/18 01:52 Last Admin: 08/06/18 02:28 Dose: 1 mg Hydromorphone HCl (Dilaudid) 0.5 mg IVPUSH ONETIME ONE Stop: 08/06/18 01:51 Last Admin: 08/06/18 02:07 Dose: 0.5 mg Hydromorphone HCl (Dilaudid) 0.5 mg IVPUSH ONETIME ONE Stop: 08/06/18 02:49 Last Admin: 08/06/18 02:56 Dose: 0.5 mg Lorazepam (Ativan) 0.5 mg IVPUSH ONETIME ONE Stop: 08/06/18 02:50 Last Admin: 08/06/18 02:57 Dose: 0.5 mg Metoclopramide HCl (Reglan) 10 mg IVPUSH ONETIME ONE Stop: 08/06/18 01:51 Last Admin: 08/06/18 02:07 Dose: 10 mg Metoclopramide HCl (Reglan) 10 mg IVPUSH ONETIME ONE Stop: 08/06/18 02:05 Last Admin: 08/06/18 02:07 Dose: Not Given
--- NOTE | 2018-08-06 09:41 | PCM.POSTAN ---
POST ANESTHESIA ASSESSMENT - MENTAL STATUS Mental Status: Alert, Oriented - VITAL SIGNS Pulse Rate: 87 SaO2: 95 Resp Rate: 20 Blood Pressure: 124/82 Temperature: 37.3 C - RESPIRATORY Respiratory Status: Respiratory Rate WNL, Airway Patent, O2 Saturation Stable, Supplemental Oxygen - CARDIOVASCULAR CV Status: Pulse Rate WNL, Blood Pressure Stable - GASTROINTESTINAL GI Status: No Symptoms - PAIN Pain Score: 0 - POST OP HYDRATION Hydration Status: Adequate & Stable - OBSERVATIONS Free Text/Narrative:: no anesthesia complications noted
[2018-08-06 12:37] VITALS: BP 138/96
--- NOTE | 2018-08-06 14:05 | HP ---
DATE OF ADMISSION: 08/06/2018 REASON FOR ADMISSION: Foreign body lodged in the esophagus. HISTORY OF PRESENT ILLNESS: Xavier is a 67-year-old male 5 years status post CVA. He has residual dysphagia of the esophagus and some reduced mobility. His cognition is normal. He has a G-tube in place, which he has been trying to wean over the last several months. He attempted to eat a taco last night which became lodged in the esophagus. He has had this happen around dinnertime. He turned up in the ED last night with failure to pass the food bolus. Attempts to treat him medically have failed including glucagon. The patient remains here, not able to swallow his saliva, coughing, complaining of retrosternal chest pain. He has had no prior episodes. PAST MEDICAL HISTORY: 1. Hypertension. 2. CVA. 3. Poor vision. 4. Angina. 5. Coronary artery disease. 6. Hypertension. 7. History of RI. PAST SURGICAL HISTORY: He had a gastrostomy tube placed. FAMILY HISTORY: Unremarkable. CURRENT MEDICATIONS: 1. Lisinopril 40 mg p.o. daily. 2. Folic acid 1 mg p.o. daily. 3. Metoprolol 50 mg p.o. daily. 4. Norvasc 5 mg daily. 5. Oxycodone 1 to 2 tablets every 4 hours p.r.n. SOCIAL HISTORY: Substance history: He is a former smoker. Denies illicit drugs. Denies alcohol abuse. REVIEW OF SYSTEMS: A 10-system review is otherwise negative. PHYSICAL EXAMINATION: GENERAL: His cognition appears normal. VITAL SIGNS: Within normal limits other than he has a mild tachycardia at 110 and hypertension 180/100. HEAD AND NECK: Normocephalic, atraumatic. LUNGS: Clear. HEART: Regular rhythm. He is mildly tachycardic. ABDOMEN: He has a gastrostomy tube in place in the left upper quadrant. Abdomen is soft, no palpable masses. EXTREMITIES: No clubbing, cyanosis, or edema. LABORATORY DATA: His lab showed a marginal leukocytosis with a marginal left shift. Remainder of his chemistries are unremarkable. Chest x-ray is unremarkable. EKG shows evidence of an anterolateral RI in the past. ASSESSMENT: 1. Food bolus lodged in the esophagus. 2. History of cerebrovascular accident. 3. Hypertension. PLAN: I will add him on to the list and perform an EGD at some point this morning following my other emergencies. With any luck, he will pass the food bolus autonomously. In the meantime, I have consented him for an EGD and removal of foreign body. He was fully informed of the major risks of the procedure. These include, but are not limited to, perforation of the esophagus, bleeding, recurrent surgery, possibility of recurrence of the disease, aspiration, and others. He gave informed consent. KATHLEEN /[id number]
--- NOTE | 2018-08-06 16:01 | OR ---
DATE OF OPERATION: 08/06/2018 SURGEON: Jose Francisco Guillen MD PREOPERATIVE DIAGNOSIS: 1. Foreign body in the esophagus. 2. History of cerebrovascular accident and dysphagia. POSTOPERATIVE DIAGNOSIS: 1. No further foreign body identified. 2. History of cerebrovascular accident and dysphagia. FINDINGS: There was no foreign body identified in the esophagus, but he did have erosions in the esophagus consistent with a recent foreign body. I also got a good look at the balloon from his PEREZ-CORRALES tube. ANESTHESIA: General with endotracheal intubation. COMPLICATIONS: None. ESTIMATED BLOOD LOSS: None. PATHOLOGY: None. DISPOSITION: Stable at the end of procedure. INDICATION: The patient presented with what was thought to be foreign body in the esophagus. He had tacos yesterday at 5 p.m. He was unable to swallow since then. He was unable to swallow his saliva. He was worked up. Glucagon was unsuccessful in clearing the bolus. I saw him early this morning prior to my other cases, and he still was not able to swallow his saliva and complained of retrosternal chest pain. The patient was booked for an EGD and removal of foreign body. He was fully informed of the major risks of the procedure. These include, but are not limited to, recurrence of disease, bleeding, aspiration pneumonia, laryngeal spasm, possibly further surgery, and many others. He gave informed consent for what was done. DESCRIPTION OF PROCEDURE: The patient was brought back to the gastro suite and given general anesthesia and intubated. The endoscope was passed uneventfully into the proximal esophagus. I advanced the scope, keeping the lumen in view at all times with gentle forward pressure. I encountered in mid esophagus, an area of excoriation in the esophagus, which was consistent with recent food bolus. However, advancing the scope further, eventually, I entered the stomach, and there was no foreign body still lodged in the esophagus. It did appear that most of his distal esophagus was somewhat eroded, consistent with recent passage of foreign body. The remainder of his EGD was unremarkable. At this point, the scope was withdrawn, evacuating the air and fluids from along the way. The scope was completely withdrawn. He was awakened from anesthesia and extubated. PLAN: He will need to have another swallow eval. I would recommend he avoid eating or drinking for now until he can be reassessed for competence and functionality of his esophagus. OPERATION PERFORMED: MMODAL /[id number]
== END | disposition home or self-care (01) ==
LOC: JD.ED 01:20 → JD.SDS 07:54
PROVIDERS: ATTEND Surgery
DX: K22.10 Ulcer of esophagus without bleeding (principal); I25.119 Atherosclerotic heart disease of native coronary artery with unspecified angina pectoris; I10 Essential (primary) hypertension; I25.2 Old myocardial infarction; I69.391 Dysphagia following cerebral infarction; R13.10 Dysphagia, unspecified; Z93.1 Gastrostomy status; Z87.891 Personal history of nicotine dependence; Z79.899 Other long term (current) drug therapy
CPT/HCPCS: 36415; 43235; 71045; 80053; 83735; 83880; 85007; 85027; 93005; 96361; 96374; 96375; 96376; 99285; J0330; J1170; J1610; J2001; J2060; J2250; J2704; J2765; J3010; J3490; J7040; 00731; 93010

== ENCOUNTER 2022-02-17 23:15 | Inpatient (IN) | payer MEDICARE, OTHER ==
[2022-02-18] MEDS ORDERED: Adenosine 12 MG/4 ML SDV ONE (00:41)
[2022-02-18] MEDS ORDERED: Adenosine 6 MG/2 ML SDV IVPUSH ONE (00:41)
[2022-02-18] MEDS ORDERED: Sodium Chloride 0.9% 1,000 ML IV ONE ×2 (00:53→02:15)
[2022-02-18 01:44] LABS: ESTIMATED GFR 103 mL/min (>60)
[2022-02-18 05:27] LABS: CORONAVIRUS COVID-19 NAA POSITIVE (NEGATIVE)
[2022-02-18] MEDS ORDERED: Morphine 2 MG/ML SYRINGE IVPUSH PRN (07:43)
[2022-02-18] MEDS ORDERED: Ondansetron 4 MG/2 ML SDV IV PRN (07:43)
[2022-02-18] MEDS ORDERED: oxyCODONE 5 MG Tab PO PRN (07:43)
[2022-02-18] MEDS ORDERED: Sodium Chloride 0.9% 10 ML Syringe FLUSH PRN (07:43)
[2022-02-18] MEDS ORDERED: REMDESIVIR 200 MG in Sodium Chloride 0.9% 250 ML IV ONE (09:00)
[2022-02-18] MEDS: Metoprolol Tartrate 50 MG Tab PO SCH (10:34)
[2022-02-18] MEDS: Heparin Sodium 5,000 Units/ML Vial SUBCUT SCH ×2 (10:37→17:48)
[2022-02-19] MEDS: Heparin Sodium 5,000 Units/ML Vial SUBCUT SCH ×3 (02:45→17:54)
[2022-02-19 06:27] LABS: ESTIMATED GFR 116 mL/min (>60)
[2022-02-19] MEDS: Folic Acid 1 MG Tab PO SCH (08:19)
[2022-02-19] MEDS: Potassium Chloride 10 MEQ in Premix Bag 1 BAG IV SCH ×5 (08:24→13:01)
[2022-02-19] MEDS: Metoprolol Tartrate 50 MG Tab PO SCH (09:20)
[2022-02-19] MEDS: REMDESIVIR 100 MG in Sodium Chloride 0.9% 250 ML IV SCH (09:46)
[2022-02-19] MEDS ORDERED: Acetaminophen 325 MG Tab PO PRN (12:01)
[2022-02-19] MEDS ORDERED: Magnesium Sulfate/Water 2 GM in Premix Bag 1 BAG IV ONE (13:30)
[2022-02-20] MEDS: Heparin Sodium 5,000 Units/ML Vial SUBCUT SCH ×2 (01:44→09:20)
[2022-02-20] MEDS ORDERED: Magnesium Sulfate/Water 4 GM in Premix Bag 1 BAG IV ONE (08:00)
[2022-02-20] MEDS ORDERED: Potassium Bicarbonate/Cit Ac 20 MEQ Effervescent Tab PEGTUBE ONE (08:00)
[2022-02-20] MEDS: Metoprolol Tartrate 50 MG Tab PO SCH (08:15)
[2022-02-20 08:16] VITALS: BP 117/77; PULSE 116
[2022-02-20] MEDS: Folic Acid 1 MG Tab PO SCH (08:16)
[2022-02-20] MEDS ORDERED: Folic Acid 1 MG Tab GTUBE SCH (08:36)
[2022-02-20] MEDS ORDERED: Metoprolol Succinate 50 MG Tab.ER PO SCH (09:00)
[2022-02-20] MEDS: REMDESIVIR 100 MG in Sodium Chloride 0.9% 250 ML IV SCH (09:20)
[2022-02-20] MEDS ORDERED: FLU Vacc QS2022(65UP)/MF59C/PF 60 MCG/0.5 ML Syringe IM ONE (12:23)
[2022-02-20] MEDS ORDERED: Potassium Chloride 10 MEQ in Premix Bag 1 BAG IV SCH (12:30)
[2022-02-20] MEDS ORDERED: Metoprolol Tartrate 50 MG Tab GTUBE SCH (21:00)
[2022-02-21] MEDS ORDERED: Folic Acid 1 MG Tab GTUBE SCH (09:00)
== END 2022-02-20 13:23 | disposition home or self-care (01) | DRG 178 ==
LOC: JD.ED 23:15 → JD.MS 02-18 06:56 → OBSVTOIN 02-20 08:34
PROVIDERS: ADMIT Internal Medicine Critical Care Medicine; ATTEND Internal Medicine
PROC: XW033E5 Introduction of Remdesivir Anti-infective into Peripheral Vein, Percutaneous Approach, New Technology Group 5 (ICD-10-PCS; principal; 2022-02-20)
DX: U07.1 COVID-19 (principal); I47.1 Supraventricular tachycardia; I47.20 Ventricular tachycardia, unspecified; I69.954 Hemiplegia and hemiparesis following unspecified cerebrovascular disease affecting left non-dominant side; I25.10 Atherosclerotic heart disease of native coronary artery without angina pectoris; I10 Essential (primary) hypertension; E87.6 Hypokalemia; R79.89 Other specified abnormal findings of blood chemistry; E83.42 Hypomagnesemia; Z20.822 Contact with and (suspected) exposure to COVID-19; H54.7 Unspecified visual loss; Z86.16 Personal history of COVID-19; I25.2 Old myocardial infarction; Z93.1 Gastrostomy status; I69.991 Dysphagia following unspecified cerebrovascular disease; R13.10 Dysphagia, unspecified; I69.920 Aphasia following unspecified cerebrovascular disease
CPT/HCPCS: 0241U; 36415; 71045; 71045-26; 80053; 81001; 83605; 83735; 83880; 84145; 84484; 85007; 85027; 85379; 85610; 85730; 87040; 93005; 97162-GP; 97166-GO; 97530-GP; 97535-GO; A9270-GY; J0153; J1644; J3475; J3480; J7030; J7050